=== PATIENT | female | born 1985 | race Two or more races ===

== ENCOUNTER 2019-02-09 01:53 | Inpatient (IN) | payer SELFPAY ==
[2019-02-09] VITALS (13 sets, daily range): BP systolic 97–126; BP diastolic 40–73
[~2019-02-09] VITALS: Ht 162.6 cm; Wt 63.5 kg
[2019-02-09] MEDS ORDERED: IV NORMAL SALINE 1000ML BAG 1,000 ML IV ONE (02:15)
--- NOTE | 2019-02-09 02:33 | PHYS DOC ---
Past Medical History Past Medical History: No Pertinent History Past Surgical History: No Surgical History Additional Information: Nonsmoker Alcohol Use: None Drug Use: Heroin Adult General Chief Complaint Chief Complaint: CELLULITIS HPI HPI 33-year-old female presents with 3-4 day history of progressive swelling and redness to right antecubital fossa area. Patient initially reported she is unclear how swelling got there. Denies animal or insect bite. Patient subsequently reports she tried to inject heroin in this area. Denies diabetes. Denies fever or chills. Denies . Reports last tetanus booster was less than 5 years ago. Patient also reports she has started taking penicillin which was obtained by her mother in [id number] Review of Systems Review of Systems Constitutional: Denies fever or chills Eyes: Denies redness or eye pain HENT: Denies nasal congestion or sore throat Respiratory: Denies cough or shortness of breath Cardiovascular: Denies chest pain or palpitations GI: Denies abdominal pain, nausea, or vomiting : Denies dysuria or hematuria Musculoskeletal: Denies back pain; reports right arm discomfort Integument: Reports swelling and redness to right AC Neurologic: Denies headache, focal weakness or sensory changes Complete systems were reviewed and found to be within normal limits, except as documented in this note. Current Medications Current Medications Current Medications Medications (Trade) Dose Ordered Sig/Kristy Start Time Stop Time Status Last Admin Dose Admin Sodium Chloride 1,000 ml @ 1,000 mls/hr 1X ONCE 02/09/19 02:15 02/09/19 03:14 DC 02/09/19 02:42 1,000 MLS/HR Allergies Allergies Allergies Coded Allergies Type Severity Reaction Last Updated Verified prochlorperazine Allergy Unknown 02/09/19 Yes Physical Exam Physical Exam Constitutional: Well developed, well nourished, no acute distress, non-toxic appearance HENT: Normocephalic, atraumatic, oropharynx moist Eyes: Conjunctiva normal, no discharge Neck: Normal range of motion, no tenderness, supple Cardiovascular: Heart rate normal, regular rhythm Lungs & Thorax: Bilateral breath sounds clear to auscultation, no wheezing Abdomen: Soft, no tenderness Skin: Warm, dry, 8cm x 5cm area of induration to right antecubital fossa with erythema, tender to palpation. Back: No tenderness, no CVA tenderness Extremities: Right anterior arm at AC with induration and erythema as above, track muse to left elbow. Neurologic: Alert and oriented X 3, normal motor function, normal sensory function, no focal deficits noted Psychologic: Affect normal, judgement normal, mood normal Current Patient Data Vital Signs Vital Signs Date Time Temp Pulse Resp B/P (MAP) Pulse Ox O2 Delivery O2 Flow Rate FiO2 02/09/19 02:09 98.5 82 14 138/74 (95) 100 Room Air 98.5 EKG EKG [] Radiology/Procedures Radiology/Procedures PROCEDURE: EXT NON VASC RIGHT Indication: Right antecubital cellulitis. Evaluate for abscess. TECHNIQUE: Grayscale and color Doppler images of the right antecubital soft tissue COMPARISON: None FINDINGS: Diffuse edema is seen of the antecubital soft tissue. There is an ill-defined hypoechoic lesion measuring 3.5 x 2.6 x 1.5 cm with surrounding and trace internal vascularity. IMPRESSION: Right antecubital fossa soft tissue lesion as described above suggest abscess and cellulitis/inflammatory phlegmon. Further evaluation with CT with IV contrast may be of additional benefit. Electronically signed by: Nicanor Agustin DO (02/09/2019 5:59 AM) [facility] Course & Med Decision Making Course & Med Decision Making Pertinent Labs and Imaging studies reviewed. (See chart for details) Patient presents with history of present illness and physical exam concerning for abscess to right antecubital fossa with surrounding cellulitis status post injection of heroin. Tetanus up-to-date. Labs obtained and posted to chart. Empiric antibiotics initiated. Ultrasound with findings concerning for abscess with surrounding cellulitis however recommendation of CT imaging reported. CT extremity pending. Patient requiring admission for further evaluation and treatment. Discussed with Dr. Cottrell (hospitalist) who is in agreement with admission. Consult placed for general surgery for further evaluation and possible need for I&D. Discussed findings and plan with patient and her friend, who acknowledge understanding and agreement. Dragon Disclaimer Dragon Disclaimer This electronic medical record was generated, in whole or in part, using a voice recognition dictation system. Departure Departure Impression: Primary Impression: Cellulitis and abscess of upper extremity Additional Impression: IV drug abuse Disposition: ADMITTED INPATIENT Admitting Physician: LEIF Lopez) Condition: STABLE Problem Qualifiers MACEY ARAUJO DO Feb 09, 2019 02:33
[2019-02-09] MEDS ORDERED: ACETAMINOPHEN 325 MG TABLET. PO PRN (02:45)
[2019-02-09] MEDS ORDERED: ONDANSETRON PF 4 MG/2 ML VIAL. IV PRN ×2 (02:45→08:45)
[2019-02-09 02:48] LABS: BASO # 0.1 x10^3/uL (0.0-0.2); BASO % 1 % (0-3); EOS # 0.1 x10^3/uL (0.0-0.7); EOS % 2 % (0-3); HEMATOCRIT 28.9 % (36.0-47.0); HEMOGLOBIN 9.2 g/dL (12.0-15.5); LYMPH # 1.2 x10^3/uL (1.0-4.8); LYMPH % 22 % (24-48); MEAN CORPUSCULAR HEMOGLOBIN 24 pg (25-35); MEAN CORPUSCULAR HGB CONC 32 g/dL (31-37); MEAN CORPUSCULAR VOLUME 75 fL (79-100); MONO # 0.2 x10^3/uL (0.0-1.1); MONO % 4 % (0-9); NEUT # 3.9 x10^3uL (1.8-7.7); NEUT % 71 % (31-73); PLATELET COUNT 243 x10^3/uL (140-400); RED BLOOD COUNT 3.84 x10^6/uL (3.50-5.40); RED CELL DISTRIBUTION WIDTH 15.7 % (11.5-14.5); WHITE BLOOD COUNT 5.5 x10^3/uL (4.0-11.0)
[2019-02-09 02:57] LABS: CALCIUM 9.3 mg/dL (8.5-10.1); CREATININE 0.7 mg/dL (0.6-1.0); GFR 96.4; POTASSIUM 4.2 mmol/L (3.5-5.1)
[2019-02-09 03:03] LABS: ALBUMIN 3.6 g/dL (3.4-5.0); MAGNESIUM 2.3 mg/dL (1.8-2.4); TOTAL BILIRUBIN 0.4 mg/dL (0.2-1.0); TOTAL PROTEIN 7.3 g/dL (6.4-8.2)
[2019-02-09 03:10] LABS: BILIRUBIN,URINE NEGATIVE (NEG); CLARITY,URINE CLEAR; COLOR,URINE YELLOW; NITRITE,URINE NEGATIVE (NEG); PROTEIN,URINE NEGATIVE (NEG-TRACE); UROBILINOGEN,URINE 0.2 mg/dL (0.2 mg/dL)
[2019-02-09 03:16] LABS: BARBITURATES NEG (NEG); BENZODIAZEPINES NEG (NEG); CANNABINOIDS NEG (NEG); COCAINE NEG (NEG); METHADONE NEG (NEG); OPIATES POS (NEG); PHENCYCLIDINE NEG (NEG)
[2019-02-09 03:28] LABS: AMPHETAMINE/METHAMPHETAMINE NEG (NEG)
[2019-02-09 03:30] LABS: BACTERIA,URINE 0 /HPF (0-FEW); RBC,URINE 0 /HPF (0-2); WBC,URINE 0 /HPF (0-4)
[2019-02-09 03:31] LABS: SQUAMOUS EPITHELIAL CELL,UR OCC /LPF
[2019-02-09] MEDS ORDERED: CLINDAMYCIN 600MG PREMIX 50 ML IV ONE (04:00)
--- NOTE | 2019-02-09 04:10 | NUR ---
The patient, COLTON CALLAHAN, 33 y/o, F admitted by CHARIS HUANG MD, was given written information regarding hospital policies, unit procedures and contact persons. Valuables were checked and left in the room.
--- NOTE | 2019-02-09 06:02 | RAD ---
Indication: Right antecubital cellulitis. Evaluate for abscess. TECHNIQUE: Grayscale and color Doppler images of the right antecubital soft tissue COMPARISON: None FINDINGS: Diffuse edema is seen of the antecubital soft tissue. There is an ill-defined hypoechoic lesion measuring 3.5 x 2.6 x 1.5 cm with surrounding and trace internal vascularity. IMPRESSION: Right antecubital fossa soft tissue lesion as described above suggest abscess and cellulitis/inflammatory phlegmon. Further evaluation with CT with IV contrast may be of additional benefit. Electronically signed by: Nicanor Agustin DO (02/09/2019 5:59 AM) [facility]
[2019-02-09] MEDS ORDERED: CONTRAST GIVEN. MC PRN (07:45)
[2019-02-09] MEDS ORDERED: IOHEXOL 300 MG/ML 100ML VIAL. IV ONE (07:45)
[2019-02-09] MEDS ORDERED: MORPHINE SULFATE 2 MG/ML VIAL. IV PRN (08:45)
[2019-02-09] MEDS ORDERED: fentaNYL PF VIAL 100 MCG/2 ML VIAL IV PRN ×2 (08:45)
[2019-02-09] MEDS ORDERED: HYDROmorphone 2 MG/ML VIAL IV PRN (08:45)
[2019-02-09] MEDS ORDERED: IV RINGERS,LACTATED 1000ML 1,000 ML IV SCH (08:45)
--- NOTE | 2019-02-09 08:46 | PDOC2 ---
CONSULT Date of Consult Date of Consult DATE: 02/09/19 TIME: 08:42 Reason for Consult Reason for Consult: Right antecubital fossa abscess Referring Physician Referring Physician: Ronit Identification/Chief Complaint Chief Complaint Pain and swelling of the right arm Source Source: Patient History of Present Illness Reason for Visit: 33-year-old female developed a swelling and painful area in the right arm got worse or last several days Past Medical History Cardiovascular: No pertinent hx Pulmonary: No pertinent hx GI: No pertinent hx Heme/Onc: No pertinent hx Hepatobiliary: No pertinent hx Psych: Addictions Rheumatologic: No pertinent hx Infectious disease: No pertinent hx ENT: No pertinent hx Renal/: No pertinent hx Endocrine: No pertinent hx Dermatology: No pertinent hx Past Surgical History Past Surgical History: No pertinent history Family History Family History: No Significant Social History ALCOHOL: occassional Drugs: Heroin Lives: with Family Current Problem List Problem List Problems Medical Problems: (1) Cellulitis and abscess of upper extremity Status: Acute (2) IV drug abuse Status: Acute Current Medications Current Medications Current Medications Sodium Chloride 1,000 ml @ 1,000 mls/hr 1X ONCE IV Last administered on 02/09/19at 02:42; Start 02/09/19 at 02:15; Stop 02/09/19 at 03:14; Status DC Ondansetron HCl (Zofran) 4 mg PRN Q8HRS PRN IV NAUSEA/VOMITING; Start 02/09/19 at 02:45; Stop 02/10/19 at 02:44 Acetaminophen (Tylenol) 650 mg PRN Q4HRS PRN PO FEVER; Start 02/09/19 at 02:45; Stop 02/10/19 at 02:44 Clindamycin Phosphate 50 ml @ 100 mls/hr 1X ONCE IV Last administered on 02/09/19at 04:08; Start 02/09/19 at 04:00; Stop 02/09/19 at 04:29; Status DC Iohexol (Omnipaque 300 Mg/ml) 75 ml 1X ONCE IV ; Start 02/09/19 at 07:45; Stop 02/09/19 at 07:46; Status DC Info (CONTRAST GIVEN -- Rx MONITORING) 1 each PRN DAILY PRN MC SEE COMMENTS; Start 02/09/19 at 07:45; Stop 02/11/19 at 07:44 Allergies Allergies: Coded Allergies: prochlorperazine (Verified Allergy, Unknown, 02/09/19) ROS Musculoskeletal: Yes Joint Swelling, Yes Pain In: (right arm) Physical Exam General: Alert, Oriented X3, Cooperative, mild distress HEENT: Atraumatic, PERRLA, EOMI Lungs: Clear to auscultation, Normal air movement Heart: Regular rate, No murmurs Abdomen: Normal bowel sounds, Soft, No tenderness Extremities: Other (focal edema and erythema tenderness the right antecubital fossa) Neuro: Normal speech Psych/Mental Status: Mental status NL Vitals VITALS Vital Signs Date Time Temp Pulse Resp B/P (MAP) Pulse Ox O2 Delivery O2 Flow Rate FiO2 02/09/19 07:00 98.2 63 18 115/68 (84) 97 Room Air 98.2 Labs Labs Laboratory Tests Test 02/09/19 02:35 02/09/19 03:00 02/09/19 03:01 White Blood Count 5.5 x10^3/uL (4.0-11.0) Red Blood Count 3.84 x10^6/uL (3.50-5.40) Hemoglobin 9.2 g/dL (12.0-15.5) Hematocrit 28.9 % (36.0-47.0) Mean Corpuscular Volume 75 fL (79-100) Mean Corpuscular Hemoglobin 24 pg (25-35) Mean Corpuscular Hemoglobin Concent 32 g/dL (31-37) Red Cell Distribution Width 15.7 % (11.5-14.5) Platelet Count 243 x10^3/uL (140-400) Neutrophils (%) (Auto) 71 % (31-73) Lymphocytes (%) (Auto) 22 % (24-48) Monocytes (%) (Auto) 4 % (0-9) Eosinophils (%) (Auto) 2 % (0-3) Basophils (%) (Auto) 1 % (0-3) Neutrophils # (Auto) 3.9 x10^3uL (1.8-7.7) Lymphocytes # (Auto) 1.2 x10^3/uL (1.0-4.8) Monocytes # (Auto) 0.2 x10^3/uL (0.0-1.1) Eosinophils # (Auto) 0.1 x10^3/uL (0.0-0.7) Basophils # (Auto) 0.1 x10^3/uL (0.0-0.2) Sodium Level 143 mmol/L (136-145) Potassium Level 4.2 mmol/L (3.5-5.1) Chloride Level 105 mmol/L (98-107) Carbon Dioxide Level 27 mmol/L (21-32) Anion Gap 11 (6-14) Blood Urea Nitrogen 12 mg/dL (7-20) Creatinine 0.7 mg/dL (0.6-1.0) Estimated GFR (Cockcroft-Gault) 96.4 BUN/Creatinine Ratio 17 (6-20) Glucose Level 102 mg/dL (70-99) Lactic Acid Level 1.1 mmol/L (0.4-2.0) Calcium Level 9.3 mg/dL (8.5-10.1) Magnesium Level 2.3 mg/dL (1.8-2.4) Total Bilirubin 0.4 mg/dL (0.2-1.0) Aspartate Amino Transf (AST/SGOT) 14 U/L (15-37) Alanine Aminotransferase (ALT/SGPT) 16 U/L (14-59) Alkaline Phosphatase 73 U/L (46-116) Total Protein 7.3 g/dL (6.4-8.2) Albumin 3.6 g/dL (3.4-5.0) Albumin/Globulin Ratio 1.0 (1.0-1.7) Urine Collection Type Unknown Urine Color Yellow Urine Clarity Clear Urine pH 7.0 Urine Specific [place] <=1.005 Urine Protein Negative mg/dL (NEG-TRACE) Urine Glucose (UA) Negative mg/dL (NEG) Urine Ketones (Stick) Negative mg/dL (NEG) Urine Blood Moderate (NEG) Urine Nitrite Negative (NEG) Urine Bilirubin Negative (NEG) Urine Urobilinogen Dipstick 0.2 mg/dL (0.2 mg/dL) Urine Leukocyte Esterase Negative (NEG) Urine RBC 0 /HPF (0-2) Urine WBC 0 /HPF (0-4) Urine Squamous Epithelial Cells Occ /LPF Urine Bacteria 0 /HPF (0-FEW) Urine Mucus Slight /LPF Urine Opiates Screen Pos (NEG) Urine Methadone Screen Neg (NEG) Urine Barbiturates Neg (NEG) Urine Phencyclidine Screen Neg (NEG) Urine Amphetamine/Methamphetamine Neg (NEG) Urine Benzodiazepines Screen Neg (NEG) Urine Cocaine Screen Neg (NEG) Urine Cannabinoids Screen Neg (NEG) Urine Ethyl Alcohol Neg (NEG) Bedside Urine HCG, Qualitative Hcg negative (Negative) Laboratory Tests Test 02/09/19 02:35 02/09/19 03:00 02/09/19 03:01 White Blood Count 5.5 x10^3/uL (4.0-11.0) Red Blood Count 3.84 x10^6/uL (3.50-5.40) Hemoglobin 9.2 g/dL (12.0-15.5) Hematocrit 28.9 % (36.0-47.0) Mean Corpuscular Volume 75 fL (79-100) Mean Corpuscular Hemoglobin 24 pg (25-35) Mean Corpuscular Hemoglobin Concent 32 g/dL (31-37) Red Cell Distribution Width 15.7 % (11.5-14.5) Platelet Count 243 x10^3/uL (140-400) Neutrophils (%) (Auto) 71 % (31-73) Lymphocytes (%) (Auto) 22 % (24-48) Monocytes (%) (Auto) 4 % (0-9) Eosinophils (%) (Auto) 2 % (0-3) Basophils (%) (Auto) 1 % (0-3) Neutrophils # (Auto) 3.9 x10^3uL (1.8-7.7) Lymphocytes # (Auto) 1.2 x10^3/uL (1.0-4.8) Monocytes # (Auto) 0.2 x10^3/uL (0.0-1.1) Eosinophils # (Auto) 0.1 x10^3/uL (0.0-0.7) Basophils # (Auto) 0.1 x10^3/uL (0.0-0.2) Sodium Level 143 mmol/L (136-145) Potassium Level 4.2 mmol/L (3.5-5.1) Chloride Level 105 mmol/L (98-107) Carbon Dioxide Level 27 mmol/L (21-32) Anion Gap 11 (6-14) Blood Urea Nitrogen 12 mg/dL (7-20) Creatinine 0.7 mg/dL (0.6-1.0) Estimated GFR (Cockcroft-Gault) 96.4 BUN/Creatinine Ratio 17 (6-20) Glucose Level 102 mg/dL (70-99) Lactic Acid Level 1.1 mmol/L (0.4-2.0) Calcium Level 9.3 mg/dL (8.5-10.1) Magnesium Level 2.3 mg/dL (1.8-2.4) Total Bilirubin 0.4 mg/dL (0.2-1.0) Aspartate Amino Transf (AST/SGOT) 14 U/L (15-37) Alanine Aminotransferase (ALT/SGPT) 16 U/L (14-59) Alkaline Phosphatase 73 U/L (46-116) Total Protein 7.3 g/dL (6.4-8.2) Albumin 3.6 g/dL (3.4-5.0) Albumin/Globulin Ratio 1.0 (1.0-1.7) Urine Collection Type Unknown Urine Color Yellow Urine Clarity Clear Urine pH 7.0 Urine Specific [place] <=1.005 Urine Protein Negative mg/dL (NEG-TRACE) Urine Glucose (UA) Negative mg/dL (NEG) Urine Ketones (Stick) Negative mg/dL (NEG) Urine Blood Moderate (NEG) Urine Nitrite Negative (NEG) Urine Bilirubin Negative (NEG) Urine Urobilinogen Dipstick 0.2 mg/dL (0.2 mg/dL) Urine Leukocyte Esterase Negative (NEG) Urine RBC 0 /HPF (0-2) Urine WBC 0 /HPF (0-4) Urine Squamous Epithelial Cells Occ /LPF Urine Bacteria 0 /HPF (0-FEW) Urine Mucus Slight /LPF Urine Opiates Screen Pos (NEG) Urine Methadone Screen Neg (NEG) Urine Barbiturates Neg (NEG) Urine Phencyclidine Screen Neg (NEG) Urine Amphetamine/Methamphetamine Neg (NEG) Urine Benzodiazepines Screen Neg (NEG) Urine Cocaine Screen Neg (NEG) Urine Cannabinoids Screen Neg (NEG) Urine Ethyl Alcohol Neg (NEG) Bedside Urine HCG, Qualitative Hcg negative (Negative) Images Images Ultrasound of right antecubital fossa shows fluid collection consistent with abscess Assessment/Plan Assessment/Plan Cellulitis abscess right antecubital fossa plan for I&D SCOTT BAUGH MD Feb 09, 2019 08:46
[2019-02-09] MEDS ORDERED: BUPIVACAINE-EPI 0.25%-1:200000 MPF 30 ML VIAL. ONE (08:48)
[2019-02-09] MEDS ORDERED: LIDOCAINE 2% PF 5 ML VIAL. ONE (08:54)
[2019-02-09] MEDS ORDERED: PROPOFOL 20 ML IV ONE (08:54)
[2019-02-09] MEDS ORDERED: DEXAMETHASONE SOD PHOS 4 MG/ML VIAL ONE (08:54)
[2019-02-09] MEDS ORDERED: ONDANSETRON PF 4 MG/2 ML VIAL. ONE (08:54)
[2019-02-09] MEDS ORDERED: MIDAZOLAM HCL/PF 2 MG/2 ML VIAL. ONE (08:55)
[2019-02-09] MEDS ORDERED: KETOROLAC 30 MG/ML INJ FOR OR. INJ ONE (10:13)
[2019-02-09] MEDS ORDERED: SEVOFLURANE 16 TO 30 MINUTES. IH ONE (10:22)
--- NOTE | 2019-02-09 10:24 | PDOC4 ---
Operative Note Operative Note Date: 02/09/2019 Preoperative diagnosis: Right antecubital fossa abscess Postoperative diagnosis: Same Procedure: Incision and drainage of abscess Surgeon: Dax Specimen: Cultures Dictation: Patient is a 33-year-old female is been using IV drugs developed a abscess in the right antecubital fossa procedure of incision and drainage was explained to the patient detail risk benefits were also discussed including bleeding infection alternatives to this procedure also discussed with the patient who seemed to understand and gave both verbal and written consent had procedure performed. Patient was taken to the operating room placed the supine position general anesthesia was initiated once patient was sleep and intubated her right arm was prepped and draped usual sterile fashion using ChloraPrep and area over the abscess was injected with quarter percent Marcaine with epinephrine incision was made with a 11 blade scalpel fair amount of pus was expressed this was cultured the wound was then irrigated with copious amounts of normal saline and packed with quarter inch iodoform Nu Gauze. Dressed with 4 x 4's and a Kerlix wrap. Patient was awakened and extubated in the operating room taken to recovery in stable condition all sponge instrument needle counts listed as correct estimated blood loss 5 mL SCOTT BAUGH MD Feb 09, 2019 10:24
[2019-02-09] MEDS: oxyCODONE/APAP 5/325 1 TAB TABLET PO PRN ×3 (11:55→20:21)
--- NOTE | 2019-02-09 15:41 | PDOC1 ---
History and Physical Date of Admission Date of Admission 02/09/2019 Identification/Chief Complaint Chief Complaint right antecubital abscess Source Source: Chart review, Unable to obtain due to (patient seen post op and still quite sedated ) History of Present Illness History of Present Illness Patient is a 33 -year-old female who unfortunately abuses heroine. The patient according to reports from emergency department physician and review of her chart had an accident while trying to inject herself. She missed the vein and noted erythema pain and swelling over the affected area. She came to the emergency department was found to have the above-mentioned abscess. The patient was taken to the OR earlier in the day prior to my visit and she has come back to the medical floor after her procedure. The patient is currently quite sedated and unable to have a meaningful interaction with her. Chart review has been done we will continue with broad-spectrum antibiotics further recommendations will be based on the clinical course her friends at bedside no complaints during my visit Past Medical History Cardiovascular: No pertinent hx Pulmonary: No pertinent hx GI: No pertinent hx Heme/Onc: No pertinent hx Hepatobiliary: No pertinent hx Psych: Addictions Rheumatologic: No pertinent hx Infectious disease: No pertinent hx ENT: No pertinent hx Renal/: No pertinent hx Endocrine: No pertinent hx Dermatology: No pertinent hx Past Surgical History Past Surgical History: No pertinent history Family History Family History: No Significant Social History ALCOHOL: occassional Drugs: Heroin Current Problem List Problem List Problems Medical Problems: (1) Cellulitis and abscess of upper extremity Status: Acute (2) IV drug abuse Status: Acute Current Medications Current Medications Current Medications Medications (Trade) Dose Ordered Sig/Kristy Start Time Stop Time Status Last Admin Dose Admin Acetaminophen (Tylenol) 650 mg PRN Q4HRS PRN 02/09/19 02:45 02/10/19 02:44 Bupivacaine HCl/ Epinephrine Bitart (Sensorcaine-Epi 0.25%-1:311497 Mpf) 30 ml STK-MED ONCE 02/09/19 08:48 02/09/19 09:49 DC 02/09/19 10:17 4 ML Clindamycin Phosphate 50 ml @ 100 mls/hr 1X ONCE 02/09/19 04:00 02/09/19 04:29 DC 02/09/19 04:08 100 MLS/HR Dexamethasone Sodium Phosphate (Decadron) 4 mg STK-MED ONCE 02/09/19 08:54 6/1/19 08:55 DC Fentanyl Citrate (Fentanyl 2ml Vial) 50 mcg PRN Q5MIN PRN 02/09/19 08:45 02/10/19 08:44 Hydromorphone HCl (Dilaudid) 0.5 mg PRN Q10MIN PRN 02/09/19 08:45 02/10/19 08:44 Info (CONTRAST GIVEN -- Rx MONITORING) 1 each PRN DAILY PRN 02/09/19 07:45 02/11/19 07:44 Iohexol (Omnipaque 300 Mg/ml) 75 ml 1X ONCE 02/09/19 07:45 02/09/19 07:46 DC Ketorolac Tromethamine (Toradol For Or Only) 30 mg STK-MED ONCE 02/09/19 10:13 02/09/19 10:14 DC Lidocaine HCl (Lidocaine Pf 2% Vial) 5 ml STK-MED ONCE 02/09/19 08:54 02/09/19 08:55 DC Midazolam HCl (Versed) 2 mg STK-MED ONCE 02/09/19 08:55 02/09/19 08:56 DC Morphine Sulfate (Morphine Sulfate) 1 mg PRN Q10MIN PRN 02/09/19 08:45 02/10/19 08:44 Ondansetron HCl (Zofran) 4 mg STK-MED ONCE 02/09/19 08:54 02/09/19 08:55 DC Oxycodone/ Acetaminophen (Percocet 5/325) 1 tab PRN Q4HRS PRN 02/09/19 10:30 02/09/19 11:55 1 TAB Propofol 20 ml @ As Directed STK-MED ONCE 02/09/19 08:54 02/09/19 08:55 DC Ringer's Solution 1,000 ml @ 30 mls/hr Q24H 02/09/19 08:45 02/09/19 20:44 02/09/19 09:00 30 MLS/HR Sevoflurane (Ultane) 15 ml STK-MED ONCE 02/09/19 10:22 02/09/19 10:23 DC Sodium Chloride 1,000 ml @ 1,000 mls/hr 1X ONCE 02/09/19 02:15 02/09/19 03:14 DC 02/09/19 02:42 1,000 MLS/HR Allergies Allergies Allergies Coded Allergies Type Severity Reaction Last Updated Verified prochlorperazine Allergy Unknown 02/09/19 Yes ROS Review of System CONSTITUTIONAL: No fever or chills EYES: No recent changes SKIN: No rash or itching CARDIOVASCULAR: No chest pain, syncope, palpitations, or edema RESPIRATORY: No SOB or cough GASTROINTESTINAL: No nausea, vomiting or abdominal pain NEUROLOGICAL: No headaches or weakness ENDOCRINE: No cold or heat intolerance GENITOURINARY: No urgency or frequency of urination MUSCULOSKELETAL: No back pain or joint pain LYMPHATICS: No enlarged lymph nodes PSYCHIATRIC: No anxiety or depression Physical Exam Physical Exam GEN.: No apparent distress. Sedated HEENT: Head is normocephalic, atraumatic NECK: Supple. LUNGS: Clear to auscultation. HEART: RRR, S1, S2 present. Peripheral pulses intact ABDOMEN: Soft, nontender. Positive bowel sounds. EXTREMITIES: Without any cyanosis. NEUROLOGIC: Unable to assess PSYCHIATRIC: Unable to assess SKIN: No ulcerations Vitals Vitals Vital Signs Date Time Temp Pulse Resp B/P (MAP) Pulse Ox O2 Delivery O2 Flow Rate FiO2 02/09/19 15:00 98.2 78 18 117/68 (84) 98 Room Air 98.2 02/09/19 10:29 10 Labs Labs Laboratory Tests Test 02/09/19 02:35 02/09/19 03:00 02/09/19 03:01 White Blood Count 5.5 x10^3/uL (4.0-11.0) Red Blood Count 3.84 x10^6/uL (3.50-5.40) Hemoglobin 9.2 g/dL (12.0-15.5) Hematocrit 28.9 % (36.0-47.0) Mean Corpuscular Volume 75 fL (79-100) Mean Corpuscular Hemoglobin 24 pg (25-35) Mean Corpuscular Hemoglobin Concent 32 g/dL (31-37) Red Cell Distribution Width 15.7 % (11.5-14.5) Platelet Count 243 x10^3/uL (140-400) Neutrophils (%) (Auto) 71 % (31-73) Lymphocytes (%) (Auto) 22 % (24-48) Monocytes (%) (Auto) 4 % (0-9) Eosinophils (%) (Auto) 2 % (0-3) Basophils (%) (Auto) 1 % (0-3) Neutrophils # (Auto) 3.9 x10^3uL (1.8-7.7) Lymphocytes # (Auto) 1.2 x10^3/uL (1.0-4.8) Monocytes # (Auto) 0.2 x10^3/uL (0.0-1.1) Eosinophils # (Auto) 0.1 x10^3/uL (0.0-0.7) Basophils # (Auto) 0.1 x10^3/uL (0.0-0.2) Sodium Level 143 mmol/L (136-145) Potassium Level 4.2 mmol/L (3.5-5.1) Chloride Level 105 mmol/L (98-107) Carbon Dioxide Level 27 mmol/L (21-32) Anion Gap 11 (6-14) Blood Urea Nitrogen 12 mg/dL (7-20) Creatinine 0.7 mg/dL (0.6-1.0) Estimated GFR (Cockcroft-Gault) 96.4 BUN/Creatinine Ratio 17 (6-20) Glucose Level 102 mg/dL (70-99) Lactic Acid Level 1.1 mmol/L (0.4-2.0) Calcium Level 9.3 mg/dL (8.5-10.1) Magnesium Level 2.3 mg/dL (1.8-2.4) Total Bilirubin 0.4 mg/dL (0.2-1.0) Aspartate Amino Transf (AST/SGOT) 14 U/L (15-37) Alanine Aminotransferase (ALT/SGPT) 16 U/L (14-59) Alkaline Phosphatase 73 U/L (46-116) Total Protein 7.3 g/dL (6.4-8.2) Albumin 3.6 g/dL (3.4-5.0) Albumin/Globulin Ratio 1.0 (1.0-1.7) Urine Collection Type Unknown Urine Color Yellow Urine Clarity Clear Urine pH 7.0 Urine Specific [place]andywine <=1.005 Urine Protein Negative mg/dL (NEG-TRACE) Urine Glucose (UA) Negative mg/dL (NEG) Urine Ketones (Stick) Negative mg/dL (NEG) Urine Blood Moderate (NEG) Urine Nitrite Negative (NEG) Urine Bilirubin Negative (NEG) Urine Urobilinogen Dipstick 0.2 mg/dL (0.2 mg/dL) Urine Leukocyte Esterase Negative (NEG) Urine RBC 0 /HPF (0-2) Urine WBC 0 /HPF (0-4) Urine Squamous Epithelial Cells Occ /LPF Urine Bacteria 0 /HPF (0-FEW) Urine Mucus Slight /LPF Urine Opiates Screen Pos (NEG) Urine Methadone Screen Neg (NEG) Urine Barbiturates Neg (NEG) Urine Phencyclidine Screen Neg (NEG) Urine Amphetamine/Methamphetamine Neg (NEG) Urine Benzodiazepines Screen Neg (NEG) Urine Cocaine Screen Neg (NEG) Urine Cannabinoids Screen Neg (NEG) Urine Ethyl Alcohol Neg (NEG) Bedside Urine HCG, Qualitative Hcg negative (Negative) Laboratory Tests Test 02/09/19 02:35 02/09/19 03:00 02/09/19 03:01 White Blood Count 5.5 x10^3/uL (4.0-11.0) Red Blood Count 3.84 x10^6/uL (3.50-5.40) Hemoglobin 9.2 g/dL (12.0-15.5) Hematocrit 28.9 % (36.0-47.0) Mean Corpuscular Volume 75 fL (79-100) Mean Corpuscular Hemoglobin 24 pg (25-35) Mean Corpuscular Hemoglobin Concent 32 g/dL (31-37) Red Cell Distribution Width 15.7 % (11.5-14.5) Platelet Count 243 x10^3/uL (140-400) Neutrophils (%) (Auto) 71 % (31-73) Lymphocytes (%) (Auto) 22 % (24-48) Monocytes (%) (Auto) 4 % (0-9) Eosinophils (%) (Auto) 2 % (0-3) Basophils (%) (Auto) 1 % (0-3) Neutrophils # (Auto) 3.9 x10^3uL (1.8-7.7) Lymphocytes # (Auto) 1.2 x10^3/uL (1.0-4.8) Monocytes # (Auto) 0.2 x10^3/uL (0.0-1.1) Eosinophils # (Auto) 0.1 x10^3/uL (0.0-0.7) Basophils # (Auto) 0.1 x10^3/uL (0.0-0.2) Sodium Level 143 mmol/L (136-145) Potassium Level 4.2 mmol/L (3.5-5.1) Chloride Level 105 mmol/L (98-107) Carbon Dioxide Level 27 mmol/L (21-32) Anion Gap 11 (6-14) Blood Urea Nitrogen 12 mg/dL (7-20) Creatinine 0.7 mg/dL (0.6-1.0) Estimated GFR (Cockcroft-Gault) 96.4 BUN/Creatinine Ratio 17 (6-20) Glucose Level 102 mg/dL (70-99) Lactic Acid Level 1.1 mmol/L (0.4-2.0) Calcium Level 9.3 mg/dL (8.5-10.1) Magnesium Level 2.3 mg/dL (1.8-2.4) Total Bilirubin 0.4 mg/dL (0.2-1.0) Aspartate Amino Transf (AST/SGOT) 14 U/L (15-37) Alanine Aminotransferase (ALT/SGPT) 16 U/L (14-59) Alkaline Phosphatase 73 U/L (46-116) Total Protein 7.3 g/dL (6.4-8.2) Albumin 3.6 g/dL (3.4-5.0) Albumin/Globulin Ratio 1.0 (1.0-1.7) Urine Collection Type Unknown Urine Color Yellow Urine Clarity Clear Urine pH 7.0 Urine Specific [place] <=1.005 Urine Protein Negative mg/dL (NEG-TRACE) Urine Glucose (UA) Negative mg/dL (NEG) Urine Ketones (Stick) Negative mg/dL (NEG) Urine Blood Moderate (NEG) Urine Nitrite Negative (NEG) Urine Bilirubin Negative (NEG) Urine Urobilinogen Dipstick 0.2 mg/dL (0.2 mg/dL) Urine Leukocyte Esterase Negative (NEG) Urine RBC 0 /HPF (0-2) Urine WBC 0 /HPF (0-4) Urine Squamous Epithelial Cells Occ /LPF Urine Bacteria 0 /HPF (0-FEW) Urine Mucus Slight /LPF Urine Opiates Screen Pos (NEG) Urine Methadone Screen Neg (NEG) Urine Barbiturates Neg (NEG) Urine Phencyclidine Screen Neg (NEG) Urine Amphetamine/Methamphetamine Neg (NEG) Urine Benzodiazepines Screen Neg (NEG) Urine Cocaine Screen Neg (NEG) Urine Cannabinoids Screen Neg (NEG) Urine Ethyl Alcohol Neg (NEG) Bedside Urine HCG, Qualitative Hcg negative (Negative) VTE Prophylaxis Ordered VTE Prophylaxis Devices: Yes VTE Pharmacological Prophylaxi: No Assessment/Plan Assessment/Plan Right forearm abscess IV drug abuse Microcytic anemia of no clinical significance Plan: Broad-spectrum antibiotics Wound care Further recommendations based on the clinical course Follow recommendations from surgical aide Reassess in the a.. CHARIS HUANG MD Feb 09, 2019 15:41
[2019-02-09] MEDS: CLINDAMYCIN 600MG PREMIX 50 ML IV SCH ×2 (16:25→23:01)
[2019-02-09] MEDS ORDERED: LACTOBACILLUS RHAMNOSUS GG 1 CAPSULE. PO SCH (21:00)
[2019-02-09] MEDS: LORazepam 1 MG TABLET PO PRN (22:58)
[2019-02-10] MEDS: oxyCODONE/APAP 5/325 1 TAB TABLET PO PRN ×2 (00:26→04:25)
[2019-02-10] MEDS ORDERED: LOPERAMIDE 2 MG CAPSULE PO PRN (00:45)
[2019-02-10] MEDS ORDERED: cloNIDine HCL 0.2 MG TABLET PO PRN (00:45)
[2019-02-10] MEDS ORDERED: guaiFENesin DM 200MG/20MG 10 ML SYRUP PO PRN (00:45)
--- NOTE | 2019-02-10 02:53 | NUR ---
patient has been threatening to leave the hospital AMA several times tonight. All those times,the nurse explained to the patient the risks of leaving the hospital.Finally, the Patient has agreed to stay and the nurse will continue to monitor her.
[2019-02-10 02:55] VITALS: BP 111/63
[2019-02-10] MEDS: LORazepam 1 MG TABLET PO PRN (05:12)
--- NOTE | 2019-02-10 05:42 | NUR ---
Patient Tasia Medina left the hospital AMA. She signed the AMA papers and was escorted to the parking lot by security and a nurse. Admitting doctor and the surgeon were called and notified about the patient leaving.
[2019-02-11] MEDS ORDERED: CLIN150C14 PO (13:20)
== END 2019-02-10 05:15 | disposition left against medical advice (07) | DRG 603 ==
LOC: ER 01:53 → 5 NORTH 02:28
PROVIDERS: ADMIT Internal Medicine; ATTEND Internal Medicine
PROC: 0X9D0ZZ Drainage of Right Lower Arm, Open Approach (ICD-10-PCS; principal; 2019-02-09 09:30)
DX: L02.413 Cutaneous abscess of right upper limb (principal); L03.113 Cellulitis of right upper limb; F19.10 Other psychoactive substance abuse, uncomplicated; D50.9 Iron deficiency anemia, unspecified; Z53.21 Procedure and treatment not carried out due to patient leaving prior to being seen by health care provider; Z88.8 Allergy status to other drugs, medicaments and biological substances
CPT/HCPCS: 36415; 76881; 80053; 80307; 81001; 81025; 83605; 83735; 85025; 87040; 87071; 87075; 96360; A7015; J1100; J1885; J2001; J2250; J2405; J2704; J3490; J7030; J7120; 99285-25

== ENCOUNTER 2019-02-11 12:02 | Emergency (ER) | payer SELFPAY ==
[~2019-02-11] VITALS: Ht 162.6 cm; Wt 63.5 kg
[2019-02-11 12:25] VITALS: BP 124/68
--- NOTE | 2019-02-11 13:16 | PHYS DOC ---
Past Medical History Past Medical History: No Pertinent History Past Surgical History: No Surgical History Alcohol Use: None Drug Use: Heroin Adult General Chief Complaint Chief Complaint: WOUND CHECK [facility] HPI Patient is a 33 year old female who presents with an abscess that was surgically drained on Monday. The infection occurred originally due to injecting Heroin. This is in the right arm and the antecubital. The wound was packed and she is here to have the packing taken out. She states she left the hospital AMA. She is not been taken antibiotic. Rates her pain 11/18. Review of Systems Review of Systems Constitutional: Denies fever or chills [] Eyes: Denies change in visual acuity, redness, or eye pain [] HENT: Denies nasal congestion or sore throat [] Respiratory: Denies cough or shortness of breath [] Cardiovascular: No additional information not addressed in HPI [] GI: Denies abdominal pain, nausea, vomiting, bloody stools or diarrhea [] : Denies dysuria or hematuria [] Musculoskeletal: Denies back pain or joint pain [] Integument: Denies rash or skin lesions with exception of Abscess to R AC. Neurologic: Denies headache, focal weakness or sensory changes [] Endocrine: Denies polyuria or polydipsia [] Complete systems were reviewed and found to be within normal limits, except as documented in this note. Allergies Allergies Allergies Coded Allergies Type Severity Reaction Last Updated Verified prochlorperazine Allergy Unknown 02/09/19 Yes Physical Exam Physical Exam Constitutional: Well developed, well nourished, no acute distress, non-toxic appearance. [] HENT: Normocephalic, atraumatic, bilateral external ears normal, oropharynx moist, no oral exudates, nose normal. [] Eyes: PERRLA, EOMI, conjunctiva normal, no discharge. [] Neck: Normal range of motion, no tenderness, supple, no stridor. [] Cardiovascular:Heart rate regular rhythm, no murmur [] Lungs & Thorax: Bilateral breath sounds clear to auscultation [] Abdomen: Bowel sounds normal, soft, no tenderness, no masses, no pulsatile masses. [] Skin: Warm, dry, no erythema, no rash, has abscess that is packed that has been draining exudate to the Right AC. Back: No tenderness, no CVA tenderness. [] Extremities: No tenderness, no cyanosis, no clubbing, ROM intact, no edema. [] Neurologic: Alert and oriented X 3, normal motor function, normal sensory function, no focal deficits noted. [] Psychologic: Affect normal, judgement normal, mood normal. [] Current Patient Data Vital Signs Vital Signs Date Time Temp Pulse Resp B/P (MAP) Pulse Ox O2 Delivery O2 Flow Rate FiO2 02/11/19 12:25 98.0 71 16 124/68 (86) 96 Room Air 98.0 EKG EKG [] Radiology/Procedures Radiology/Procedures [] Course & Med Decision Making Course & Med Decision Making Pertinent Labs and Imaging studies reviewed. (See chart for details) Will take out packing and repack abscess and place on PO antibiotics and have follow up with surgeon Dr. Baugh. Dragon Disclaimer Jhon Disclaimer This electronic medical record was generated, in whole or in part, using a voice recognition dictation system. Departure Departure Impression: Primary Impression: Cellulitis of antecubital fossa Disposition: HOME, SELF-CARE Condition: STABLE Referrals: NO PCP (PCP) SCOTT BAUGH MD Patient Instructions: Cellulitis Additional Instructions: Please make an appointment and follow up with Dr. Baugh. Come back to ER if start having fevers or streaking. Scripts Clindamycin Hcl (CLINDAMYCIN HCL) 150 Mg Capsule 450 MG PO TID for 10 Days, #90 CAP Prov: MACEY MARION APRN 02/11/19 MACEY MARION APRN Feb 11, 2019 13:16
[2019-02-11] MEDS ORDERED: CLIN150C14 PO (13:20)
== END 2019-02-11 13:42 | disposition home or self-care (01) ==
LOC: ER 12:02
DX: L03.113 Cellulitis of right upper limb (principal); Z88.8 Allergy status to other drugs, medicaments and biological substances
CPT/HCPCS: 99283